=== PATIENT | female | born 1950 | race Caucasian/White ===

== ENCOUNTER 2019-07-26 06:57 | Inpatient (IN) ==
--- NOTE | 2019-07-05 16:11 | PAT Medication Instructions ---
Medication Instructions Date of Service July 05, 2019 Home Medications alendronate 70 mg PO WK cholecalciferol (vitamin D3) [Vitamin D3] 5,000 unit PO DAILY duloxetine 30 mg PO HS hydrochlorothiazide 12.5 mg PO QAM simvastatin 20 mg PO PM Continue as directed alendronate 70 mg PO WK DO NOT take the morning of surgery cholecalciferol (vitamin D3) [Vitamin D3] 5,000 unit PO DAILY hydrochlorothiazide 12.5 mg PO QAM Take evening before surgery duloxetine 30 mg PO HS simvastatin 20 mg PO PM Other Notes If you have any questions please call us at [phone] or [phone] or [phone] or [phone]
--- NOTE | 2019-07-06 09:41 | Anesthesiology Consultation ---
Date of Service July 06, 2019 Assessment & Plan (1) Encounter for pre-operative examination: Chart Review Chart Review: Pending: Refer to Additional Notes / Consult section (pending preop testing (labs, EKG, CXR)) and Patient seen in Pre Admission Testing Teaching & Discussion Pre-Anesthesia Teaching/Discussion Notes: Instructed NPO after midnight before surgery,except medications with 15 cc of water. Medication instructions provide d according to the PAT guidelines. History Surgery Operation Date: 07/26/19 08:25 Proposed Procedures p Right Total Knee Arthroplasty - Saw Levin Height/Weight Height: 5 ft 4 in Weight: 75.7 kg Allergies Allergy/AdvReac Type Severity Reaction Status Date / Time Penicillins Allergy Severe Hives Verified 06/30/19 15:02 Medications Home Medications Medication Instructions Recorded Confirmed Last Taken alendronate 70 mg PO WK 06/30/19 06/30/19 Unknown cholecalciferol (vitamin D3) 5,000 unit PO DAILY 06/30/19 06/30/19 Unknown [Vitamin D3] duloxetine 30 mg PO HS 06/30/19 06/30/19 Unknown hydrochlorothiazide 12.5 mg PO QAM 06/30/19 06/30/19 06/30/19 simvastatin 20 mg PO PM 06/30/19 06/30/19 Unknown Past Medical History Medical History Age related osteoporosis Fibromyalgia High cholesterol Hypertension Osteoarthritis Exercise / Class Metabolic Activity II 4-5 Yardwork/Stairs/Walk up hill Past Family History Family History Father Family history of diabetes mellitus Brother Family history of diabetes mellitus Past Surgical History Surgical History History of colonoscopy History of hysterectomy TOTAL History of laminectomy Past Anesthesia History No Hx of Anesthesia Complications and No Family Hx of Anesthesia Complications History of PONV No Hx of PONV and No Hx of Motion Sickness Social History Smoking Status: Never smoker Do You Dip or Chew Tobacco: No Hx Alcohol Use: Yes alcohol intake frequency: holidays/special occasions only Hx Substance Use: No substance use type: does not use Review of Systems Patient denies chest pain, shortness of breath, dyspnea on exertion, reflux, cough, wheezing, palpitations. Physical Exam Vital Signs VITALS BP 149/82 P 87 TEMP 97.7 SP02 96%RA RESP 18 PHYSICAL Full neck and c-spine range of motion. Full TMJ range of motion. TMD 3.5 finger breaths Mallampati Score 2 Dentition: full dentures on upper Lungs: clear throughout to auscultation Cardiac: regular rate and rhythm, no murmurs noted Spine: normal Carotid arteries: negative bruit Extremities: no edema
--- NOTE | 2019-07-06 10:39 | XRay Report ---
XR chest Pre-admission PA/Lat HISTORY: Preop. COMPARISON: None. FINDINGS: The lungs are clear. Cardiac silhouette is normal in size. No pleural effusions. No pneumot horax. IMPRESSION: No acute process. Electronically signed by: Rivas Stearns M.D. 07/06/2019 10:38 AM
[2019-07-06 12:12] LABS: Basophils # (auto) 0.01 K/uL (0-0.2); Basophils % (auto) 0.2 %; Eosinophils # (auto) 0.11 K/uL (0-0.5); Eosinophils % (auto) 2.4 %; Hematocrit (blood only) 45.6 % (37-47); Hemoglobin 15.9 g/dL (12.0-16.0); Immature Granulocytes # (auto) 0.01 K/uL (0.00-0.02); Immature Granulocytes % (auto) 0.2 %; Lymphocytes # (auto) 1.53 K/uL (1.2-3.4); Lymphocytes % (auto) 33.6 %; Mean Corpuscular Hemoglobin 30.8 pg (25-34); Mean Corpuscular Hgb Conc 34.9 g/dL (32-36); Mean Corpuscular Volume 88.2 fL (80-100); Mean Platelet Volume 9.7 fL (7.4-10.4); Monocytes # (auto) 0.38 K/uL (0.11-0.59); Monocytes % (auto) 8.3 %; Neutrophils # (auto) 2.52 K/uL (1.4-6.5); Neutrophils % (auto) 55.3 %; Platelet Count 262 K/uL (130-400); RDW Coefficient of Variation 13.6 % (11.5-14.5); Red Blood Count 5.17 M/uL (4.2-5.4); White Blood Count 4.56 K/uL (4.8-10.8)
[2019-07-06 12:17] LABS: Appearance Urine Clear (Clear); Bacteria Urine Automated 4+ (Negative); Bilirubin Urine Negative (Negative); Blood Urine Trace (Negative); Cast Urine Automated 0 /lpf (0-5); Color Urine Yellow; Epithelial Cell Urine Auto 20-30 /lpf (0-5); Glucose Urine UA Negative (Negative); Ketones Urine Negative (Negative); Leukocyte Esterase Urine 1+ (Negative); Nitrite Urine Negative (Negative); Protein Urine Negative (Negative); Specific Gravity Urine 1.014 (1.000-1.030); Urobilinogen Urine Negative (Negative)
[2019-07-06 12:22] LABS: Partial Thromboplastin Ratio 0.9; Partial Thromboplastin Time 25.2 Seconds (21.0-31.0); Prothrombin Time 9.8 Seconds (9.0-12.0)
[2019-07-06 12:41] LABS: Albumin Level 3.7 gm/dl (3.4-5.0); BUN Creatinine Ratio 17.7 (10-20); Calcium 9.3 mg/dl (8.5-10.1); Creatinine Clr Calc Pharmacy 60.8 ml/min; Est GFR (African American) 78.8; Potassium 3.8 mmol/L (3.5-5.1)
[2019-07-06 12:42] LABS: Bilirubin,Total 0.5 mg/dl (0.2-1); Globulin 3.6 gm/dl (2.5-4.0); Total Protein 7.3 gm/dl (6.4-8.2)
--- NOTE | 2019-07-24 13:38 | History & Physical Report ---
Date of Service July 24, 2019 Assessment & Plan (1) Degenerative joint disease of right knee: plan is to admit and undergo right TKA History of Present Illness Chief Complaint: right knee pain Primary Care Provider: NO PCP pt with right knee pain for many years. has failed nsaids, pt, and injections. Now ready for tka Allergies Allergy/AdvReac Type Severity Reaction Status Date / Time Penicillins Allergy Severe Hives Verified 06/30/19 15:02 Home Medications Home Medications Medication Instructions Recorded Confirmed Type alendronate 70 mg PO WK 06/30/19 06/30/19 History cholecalciferol (vitamin D3) 5,000 unit PO DAILY 06/30/19 06/30/19 History [Vitamin D3] duloxetine 30 mg PO HS 06/30/19 06/30/19 History hydrochlorothiazide 12.5 mg PO QAM 06/30/19 06/30/19 History simvastatin 20 mg PO PM 06/30/19 06/30/19 History Past Med/Surg History Medical History Age related osteoporosis Fibromyalgia High cholesterol Hypertension Osteoarthritis Surgical History History of colonoscopy History of hysterectomy TOTAL History of laminectomy Family History Father Family history of diabetes mellitus Brother Family history of diabetes mellitus Social History Preferred Language: Monegasque Communication Ability: Effective Search Director Required: No Beliefs That Will Affect Care: None Current Living Situation: Spouse Other Information That Helps Us Care for You: No Feels Safe at Home: Yes Smoking Status: Never smoker Do You Dip or Chew Tobacco: No ; Hx Alcohol Use: Yes Hx Substance Use: No Review of Systems All systems reviewed & are unremarkable except as noted in HPI & below Physical Exam Constitutional: WD/WN, vitals as above Neck: trachea midline, no thyromegaly Respiratory: normal respiratory effort, lungs clear to auscultation Cardiovascular: RRR, no murmur, no edema Gastrointestinal (Abdomen): normal bowel sounds, soft, nontender, no hepatosplenomegaly Musculoskeletal: Knee: + deformity, + limited ROM of knee, + knee ROM with crepitation and + joint line tenderness
[~2019-07-26 06:57] MED LIST: ACETAMINOPHEN 500 MG TAB PO SCH; BUPIVACAINE 0.5 % 5 MG/1 ML PF 10ML VIAL ONE; CEFAZOLIN 2000MG 2,000 MG/15 ML SYR IV SCH; CeleBREX 200 MG CAP PO SCH; FAMOTIDINE 20 MG TAB PO SCH; LR 500ML BOLUS, THEN 15ML/HR IV SCH; LR 60ML/HR IV SCH; METOCLOPRAMIDE HCL 10 MG TABLET PO SCH; ROPIVACAINE 0.5% HCL/PF 150 MG, BUPIVACAINE 0.5% MPF 30 ML, EPINEPHrine 30MG/30ML (OR U... INSTIL SCH; TRANEXAMIC ACID 1,000 MG **IV Intra-op IV SCH; TRANEXAMIC ACID 1,000 MG **IV Pre-op IV SCH; dexAMETHasone 4 MG TAB PO SCH
[2019-07-26] MEDS ORDERED: LIDOCAINE HCL 2% 2 ML VIAL/AMP(20MG/ML) INFIL ONE (07:41)
[2019-07-26] MEDS ORDERED: PROPOFOL IV EMULSION 10 MG/ML 20 ML VIAL IV ONE (07:41)
[2019-07-26] MEDS ORDERED: ONDANSETRON INJ 2 MG/ML 2 ML VIAL ONE (07:41)
[2019-07-26] MEDS ORDERED: MIDAZOLAM HCL 1 MG/ML 2ML VIAL ONE (07:41)
--- NOTE | 2019-07-26 08:13 | History & Physical Bridge Note ---
Date of Service July 26, 2019 History & Physical Bridge Note I have examined the patient, reviewed the History & Physical and in the interval since the performance of the History & Physical I have noted the following changes of clinical significance: no changes noted
[2019-07-26] MEDS ORDERED: BACITRACIN INJ 50,000 UNIT VIAL ONE (08:31)
[2019-07-26] MEDS ORDERED: ORTHO JOINT ANESTHETIC ONE (08:31)
[2019-07-26] MEDS ORDERED: ONDANSETRON INJ 2 MG/ML 2 ML VIAL IV PRN ×2 (08:43→11:58)
[2019-07-26] MEDS ORDERED: ePHEDrine sulfate 50 MG/ML AMP IV PRN (08:43)
[2019-07-26] MEDS ORDERED: fentaNYL citrate 100 MCG/2 ML VIAL IV PRN (08:43)
[2019-07-26] MEDS ORDERED: ATROPINE SULFATE 0.1 MG/ML 10ML SYR IV PRN (08:43)
[2019-07-26] MEDS ORDERED: CEFAZOLIN 2000MG 2,000 MG/15 ML SYR IV ONE (08:46)
[2019-07-26] MEDS ORDERED: CEFAZOLIN 2,000 MG/15 ML IV PUSH IV ONE (08:50)
--- NOTE | 2019-07-26 10:15 | Operative Report ---
Post Operative Report Pre & Post Diagnosis Operation Date: 07/26/19 09:40 Pre-Op Diagnosis: Right Knee Osteoarthritis Post-Op Diagnosis: Right Knee Osteoarthritis I identified the patient and participated in the time-out.: Yes Procedure Operation Date: 07/26/19 09:40 Actual Procedures p Right Total Knee Arthroplasty(Right) - Saw Levin Surgeon Saw Levin Auger Supervisor Justin Smith PAC Estimated Blood Loss 10 Findings Consistent with Post-Op Diagnosis Specimens none Anesthesia Type MAC Spinal Regional Complications none Disposition Disposition: Recovery Room Description of Procedure IMPLANTS USED: [employer]hew journey 2 knee size 4 cemented femoral component, a size 3 tibial component, a size 10 PS insert size 32 all polyethylene patella INDICATIONS: Mrs. Denny is a pleasant (male/female) who has unfortunately failed all forms of conservative measures. Therefore, they have decided to undergo elective surgical intervention. All risks and benefits of the surgery were discussed with the patient and the family in entirety. PROCEDURE: The patient was brought to the operating room and properly identified by myself, anesthesia, and staff. Patient was given a spinal anesthesia and placed on the operating table in the supine position. Tourniquets were applied to the right upper thigh. The leg was then prepped and draped in usual sterile fashion. We made a standard midline approach over the patella and dissected down through the subcutaneous tissue to identify the capsule and performed a medial capsulotomy with the patella everted and the knee flexed.The patient matched implant was then put onto the femur. The femur measured to be a size #4. This was then put into place. We made the appropriate cuts and then placed a retractor behind the proximal tibia to retract anteriorly. We then placed the patient matched knee implant on the tibia. It measured to be a size #3. A size #3 guide was then put in place. We used the tibial punch then put the trial components into place. We had very good range of motion, excellent stability, and excellent patella tracking. We removed the trial components and irrigated the wound. We impacted the components in place using antibiotic cement. All excess cement was removed. We then irrigated the wound once more. We closed the capsule with 0 PDS suture, deep dermis and 2-0 Vicryl, and finally the skin with lino. A sterile dressing was applied. The patient was taken to the recovery room in stable condition. Due to the complex nature of the procedure, the entire surgery was performed with the operational assistance of Justin Rivas PA-C. The property assistant was under direct supervision, was involved in the actual performance of all aspects of the surgical procedure including hemostasis, tissue retraction and incision, instrument management, patient positioning, and wound closure. I attest to the content of the Intraoperative Record and any orders documented therein. Any exceptions are noted below.
[2019-07-26] MEDS ORDERED: METOCLOPRAMIDE HCL INJ 5 MG/ML 2 ML VIAL IV PRN (11:58)
[2019-07-26] MEDS ORDERED: NALOXONE HCL 0.4 MG/1 ML VIAL/CARP IV PRN (11:58)
[2019-07-26] MEDS ORDERED: MAGNESIUM HYDROXIDE SUSP 30 ML UDC PO PRN (11:58)
[2019-07-26] MEDS ORDERED: bisacodyL 10 MG SUPP PR PRN (11:58)
[2019-07-26] MEDS ORDERED: ALUMINUM/MAGNESIUM SUSP 30 ML UDC PO PRN (11:58)
[2019-07-26] MEDS ORDERED: OXYCODONE HCL IR 5 MG TAB (IMMEDIATE RELEASE) PO PRN (11:58)
[2019-07-26] MEDS: CEFAZOLIN - ALLERGY NOTED TO ORDERED MEDICATION SCH ×6 (12:20→12:37)
[2019-07-26] MEDS ORDERED: SODIUM CHLORIDE 0.9% 1000ML 1,000 ML IV SCH (13:00)
--- NOTE | 2019-07-26 13:10 | Anesthesiology Progress Note ---
Date of Service July 26, 2019 Anesthesia Post Procedure Vital Signs Vital Signs: Temp Pulse Pulse Resp BP Pulse Ox 07/26/19 12:39 99 H 16 129/75 98 07/26/19 12:14 86 18 133/75 95 07/26/19 11:59 98.2 F 90 18 123/71 97 07/26/19 11:20 97.9 F 83 14 125/88 97 07/26/19 11:10 98.4 F 88 17 119/65 100 07/26/19 11:00 98.4 F 83 18 127/70 100 07/26/19 10:50 98.4 F 83 19 127/66 100 07/26/19 10:41 98.4 F 93 H 12 124/64 96 07/26/19 08:10 97.9 F 83 20 153/90 H 97 Transfer of Care Handoff Completed per policy Notes Mental Status: alert / awake / arousable and participated in evaluation Patient Amnestic to Procedure: Yes Nausea / Vomiting: adequately controlled Pain: adequately controlled Airway Patency, RR, SpO2: stable & adequate BP & HR: stable & adequate Hydration State: stable & adequate Neuraxial Anesthesia: was administered and sensory block is resolving Anesthetic Complications: no major complications apparent and Pt Satisfied with anesthetic care
[2019-07-26] MEDS: ACETAMINOPHEN 500 MG TAB PO SCH ×2 (15:38→22:27)
[2019-07-26] MEDS: CEFAZOLIN 2000MG 2,000 MG/15 ML SYR IV SCH ×2 (15:38→22:27)
[2019-07-26] MEDS ORDERED: TRANEXAMIC ACID 1,000 MG in 0.9 % SODIUM CHLORIDE 100 ML IV SCH (16:10)
[2019-07-26] MEDS ORDERED: DULOXETINE HCL 30 MG CAP PO SCH (21:00)
[2019-07-26] MEDS ORDERED: SIMVASTATIN 20 MG TAB PO SCH (21:00)
[2019-07-26] MEDS ORDERED: SENNA 8.6 MG TAB PO SCH (21:00)
[2019-07-26] MEDS: ASPIRIN 81 MG ECTAB PO SCH (21:04)
[2019-07-26] MEDS: DOCUSATE SODIUM 100 MG CAP PO SCH (21:04)
[2019-07-27 03:43] VITALS: O2SAT 98
[2019-07-27 05:35] LABS: Hematocrit (blood only) 36.8 % (37-47); Hemoglobin 12.4 g/dL (12.0-16.0); Mean Corpuscular Hemoglobin 29.7 pg (25-34); Mean Corpuscular Hgb Conc 33.7 g/dL (32-36); Mean Corpuscular Volume 88.2 fL (80-100); Mean Platelet Volume 8.8 fL (7.4-10.4); Platelet Count 242 K/uL (130-400); RDW Coefficient of Variation 13.5 % (11.5-14.5); RDW Standard Deviation 43.7 fL (36.4-46.3); Red Blood Count 4.17 M/uL (4.2-5.4); White Blood Count 11.74 K/uL (4.8-10.8)
[2019-07-27] MEDS: ACETAMINOPHEN 500 MG TAB PO SCH (05:42)
[2019-07-27 06:05] LABS: BUN Creatinine Ratio 24.8 (10-20); Calcium 8.5 mg/dl (8.5-10.1); Est GFR (African American) 68.2; Est GFR (Non-African American) 58.9; Potassium 4.1 mmol/L (3.5-5.1)
--- NOTE | 2019-07-27 07:44 | Anesthesiology Progress Note ---
Date of Service July 27, 2019 Anesthesia Post Procedure Vital Signs Vital Signs: Temp Pulse Pulse Resp BP Pulse Ox 07/27/19 02:42 36.4 C L 88 14 133/77 98 07/26/19 23:31 36.4 C L 73 15 124/65 95 07/26/19 19:30 36.9 C 78 16 126/70 93 07/26/19 15:58 36.4 C L 82 18 115/71 94 07/26/19 13:45 36.3 C L 92 H 16 126/72 95 07/26/19 12:39 99 H 16 129/75 98 07/26/19 12:14 86 18 133/75 95 07/26/19 11:59 36.8 C 90 18 123/71 97 07/26/19 11:20 36.6 C 83 14 125/88 97 07/26/19 11:10 36.9 C 88 17 119/65 100 07/26/19 11:00 36.9 C 83 18 127/70 100 07/26/19 10:50 36.9 C 83 19 127/66 100 07/26/19 10:41 36.9 C 93 H 12 124/64 96 07/26/19 08:10 36.6 C 83 20 153/90 H 97 Pain Intensity Right Knee: Pain Intensity: 1 Notes Mental Status: alert / awake / arousable and participated in evaluation Patient Amnestic to Procedure: Yes Nausea / Vomiting: adequately controlled Pain: adequately controlled Airway Patency, RR, SpO2: stable & adequate BP & HR: stable & adequate Hydration State: stable & adequate Neuraxial Anesthesia: was administered and sensory block resolved Anesthetic Complications: no major complications apparent and Pt Satisfied with anesthetic care
[2019-07-27 07:48] VITALS: BP 128/76; PULSE 72; TEMP 98.1
[2019-07-27] MEDS ORDERED: dexAMETHasone 10 MG in SYRINGE 0 ML IV SCH (08:00)
--- NOTE | 2019-07-27 08:14 | Orthopedic Progress Note ---
Date of Service July 27, 2019 Assessment & Plan (1) Degenerative joint disease of right knee: Postop day 1 status post right total knee arthroplasty. PT OT protocols. Weightbearing as tolerated DVT prophylaxis with aspirin twice daily, SCDs. Pain management with acetaminophen and oxycodone DC planning-patient planning on home health services upon discharge. Subjective Patient currently sitting up in her chair at the bedside. No complaints this morning. Pain is controlled. Denies shortness of breath, chest pain, lightheadedness. Is hoping to go home today. Physical Exam Physical Exam: Dressings are clean, dry, and intact. Calves are soft nontender. Neurovascular is intact. Toes are mobile. Results & Data Vital Signs (Past 12 Hours) Vital Signs Temp Pulse Resp BP Pulse Ox 07/27/19 07:47 36.7 C 72 18 128/76 98 07/27/19 02:42 36.4 C L 88 14 133/77 98 07/26/19 23:31 36.4 C L 73 15 124/65 95 Laboratory Results Laboratory Results WBC 11.74 K/uL (4.8-10.8) H 07/27/19 04:47 RBC 4.17 M/uL (4.2-5.4) L 07/27/19 04:47 Hgb 12.4 g/dL (12.0-16.0) 07/27/19 04:47 Hct 36.8 % (37-47) L 07/27/19 04:47 MCV 88.2 fL (80-100) 07/27/19 04:47 MCH 29.7 pg (25-34) 07/27/19 04:47 MCHC 33.7 g/dL (32-36) 07/27/19 04:47 RDW Std Deviation 43.7 fL (36.4-46.3) 07/27/19 04:47 RDW Coeff of Eduardo 13.5 % (11.5-14.5) 07/27/19 04:47 Plt Count 242 K/uL (130-400) 07/27/19 04:47 MPV 8.8 fL (7.4-10.4) 07/27/19 04:47 Immature Gran % (Auto) 0.2 % 07/06/19 10:01 Neut % (Auto) 55.3 % 07/06/19 10:01 Lymph % (Auto) 33.6 % 07/06/19 10:01 [place] % (Auto) 8.3 % 07/06/19 10:01 Eos % (Auto) 2.4 % 07/06/19 10:01 Baso % (Auto) 0.2 % 07/06/19 10:01 Immature Gran # (Auto) 0.01 K/uL (0.00-0.02) 07/06/19 10:01 Neut # (Auto) 2.52 K/uL (1.4-6.5) 07/06/19 10:01 Lymph # (Auto) 1.53 K/uL (1.2-3.4) 07/06/19 10:01 [place] # (Auto) 0.38 K/uL (0.11-0.59) 07/06/19 10:01 Eos # (Auto) 0.11 K/uL (0-0.5) 07/06/19 10:01 Baso # (Auto) 0.01 K/uL (0-0.2) 07/06/19 10:01 PT 9.8 Seconds (9.0-12.0) 07/06/19 10:01 INR 1.0 (0.9-1.1) 07/06/19 10:01 APTT 25.2 Seconds (21.0-31.0) 07/06/19 10:01 PTT Ratio 0.9 07/06/19 10:01 Sodium 139 mmol/L (136-145) 07/27/19 04:47 Potassium 4.1 mmol/L (3.5-5.1) 07/27/19 04:47 Chloride 106 mmol/L (98-107) 07/27/19 04:47 Carbon Dioxide 26 mmol/L (21-32) 07/27/19 04:47 Anion Gap 7.0 (3-11) 07/27/19 04:47 BUN 24 mg/dl (7-18) H 07/27/19 04:47 Creatinine 0.98 mg/dl (0.6-1.2) 07/27/19 04:47 Est Cr Clr Drug Dosing 54.0 ml/min 07/27/19 04:47 Est GFR ( Amer) 68.2 07/27/19 04:47 Est GFR (Non-Af Amer) 58.9 07/27/19 04:47 BUN/Creatinine Ratio 24.8 (10-20) H 07/27/19 04:47 Glucose 140 mg/dl (70-99) H 07/27/19 04:47 Calcium 8.5 mg/dl (8.5-10.1) 07/27/19 04:47 Total Bilirubin 0.5 mg/dl (0.2-1) 07/06/19 10:01 AST 21 U/L (15-37) 07/06/19 10:01 ALT 26 U/L (12-78) 07/06/19 10:01 Alkaline Phosphatase 74 U/L (45-117) 07/06/19 10:01 Total Protein 7.3 gm/dl (6.4-8.2) 07/06/19 10:01 Albumin 3.7 gm/dl (3.4-5.0) 07/06/19 10:01 Globulin 3.6 gm/dl (2.5-4.0) 07/06/19 10:01 Albumin/Globulin Ratio 1.0 (0.9-2) 07/06/19 10:01 Urine Color Yellow 07/06/19 Unknown Urine Appearance Clear (Clear) 07/06/19 Unknown Urine pH 6.0 (4.5-7.5) 07/06/19 Unknown Ur Specific [place] 1.014 (1.000-1.030) 07/06/19 Unknown Urine Protein Negative (Negative) 07/06/19 Unknown Urine Glucose (UA) Negative (Negative) 07/06/19 Unknown Urine Ketones Negative (Negative) 07/06/19 Unknown Urine Blood Trace (Negative) H 07/06/19 Unknown Urine Nitrite Negative (Negative) 07/06/19 Unknown Urine Bilirubin Negative (Negative) 07/06/19 Unknown Urine Urobilinogen Negative (Negative) 07/06/19 Unknown Ur Leukocyte Esterase 1+ (Negative) H 07/06/19 Unknown Urine WBC (Auto) 1-5 /hpf (0-5) 07/06/19 Unknown Urine RBC (Auto) 5-10 /hpf (0-4) H 07/06/19 Unknown U Hyaline Cast (Auto) 0 /lpf (0-5) 07/06/19 Unknown U Epithel Cells (Auto) 20-30 /lpf (0-5) H 07/06/19 Unknown Urine Bacteria (Auto) 4+ (Negative) H 07/06/19 Unknown Nasal Screen MRSA (PCR) Negative (Negative) 07/06/19 Unknown Blood Type O Positive 07/06/19 10:01 Antibody Screen NEGATIVE 07/06/19 10:01
[2019-07-27] MEDS: DOCUSATE SODIUM 100 MG CAP PO SCH (08:30)
[2019-07-27] MEDS: ASPIRIN 81 MG ECTAB PO SCH (08:30)
[2019-07-27] MEDS ORDERED: hydroCHLOROthiazide 25 MG TAB PO SCH (09:00)
--- NOTE | 2019-07-28 19:27 | Discharge Summary ---
DISCHARGE DIAGNOSIS: Degenerative joint disease, right knee. SECONDARY DIAGNOSES: Osteoporosis, fibromyalgia, hypercholesterolemia, hypertension, osteoarthritis. CONSULTS: None. COMPLICATIONS: None. PROCEDURES: Right total knee arthroplasty performed by Dr. Levin on 07/26/2019. BRIEF HISTORY: As dictated in the history and physical. HOSPITAL SUMMARY: The patient was admitted on the above-noted date and had the above-noted surgery performed, which she tolerated well. On her first postoperative day, she was currently sitting up in the chair at the bedside. No complaints of morning. Pain was controlled. Denied shortness of breath, chest pain or lightheadedness. The patient was hoping to go home. Dressings clean, dry and intact. Calves were soft, nontender, neurovascularly intact. Toes were mobile. Vital signs were stable and she was afebrile. Hemoglobin was 12.4 and she was started on physical therapy protocol and continued on DVT prophylaxis and pain management. She progressed well with her physical therapy. Pain was remaining controlled and it was felt she could be discharged to home on 07/27/2019. For further review, please see chart. LABORATORY AND X-RAY DATA: As per chart. DISCHARGE INSTRUCTIONS: The patient was discharged home on 07/27/2019 in good condition. DIET: Regular. ACTIVITY: Weightbearing as tolerated right lower extremity with crutches or walker. Follow TK instruction sheets. Follow Dr. Levin's total knee arthroplasty instruction sheets that were given prior to discharge. Follow up with Dr. Levin in 2 weeks. Call for appointment if one has not been made for you. DISCHARGE MEDICATIONS: Acetaminophen 1000 mg p.o. q. 8 hours, aspirin 81 mg p.o. b.i.d., cefadroxil 500 mg p.o. b.i.d., oxycodone 5 mg p.o. q. 4 hours p.r.n., sennosides 17.2 mg p.o. at bedtime. Resume home meds as listed. MTDD
== END 2019-07-27 13:04 | disposition home health service (06) | DRG 470 ==
LOC: ASU 06:57 → 3E 11:07